=== PATIENT | female | born 1950 | race Caucasian/White ===

== ENCOUNTER 2020-11-28 09:39 | Emergency (ER) | payer MEDICAID, OTHER ==
[~2020-11-28] VITALS: Ht 160 cm; Wt 62.6 kg
[2020-11-28 09:55] VITALS: BP 184/102
--- NOTE | 2020-11-28 09:58 | NUR ---
BIBS C/O L SMALL TOE PAIN S/P BUMPING INTO FURNITURE LAST NIGHT. PAIN IS RATED 10/10 AND IS THROBBING. UNABLE TO WIGGLE L SMALL TOE. SENSATION IS INTACT. ATTACHED TO MONITOR.
--- NOTE | 2020-11-28 10:02 | NUR ---
DR. WATT AT BEDSIDE
--- NOTE | 2020-11-28 10:07 | NUR ---
RADIOLOGY AT BEDSIDE
--- NOTE | 2020-11-28 11:20 | NUR ---
4TH AND 5TH L PHALANGES BERYL TAPED TOGETHER
--- NOTE | 2020-11-28 11:30 | NUR ---
AWAITING FOR POST-OP SHOE
--- NOTE | 2020-11-28 11:45 | NUR ---
PT PLACED IN POST-OP SHOE
--- NOTE | 2020-11-28 11:47 | NUR ---
Patient discharged to home in stable condition. Written and verbal after care instructions given. Patient verbalizes understanding of instruction.
== END 2020-11-28 11:51 | disposition home or self-care (01) ==
LOC: ER 09:45
DX: S90.122A Contusion of left lesser toe(s) without damage to nail, initial encounter (principal); W22.8XXA Striking against or struck by other objects, initial encounter; Y93.89 Activity, other specified; Y92.89 Other specified places as the place of occurrence of the external cause; Y99.8 Other external cause status
CPT/HCPCS: 73660-TC